=== PATIENT | male | born 1985 | race Caucasian/White ===

== ENCOUNTER 2017-08-09 21:50 | Emergency (ER) | payer OTHER ==
[~2017-08-09] VITALS: Ht 172.7 cm; Wt 95.5 kg
[~2017-08-09 21:50] MED LIST: NOCURR
[2017-08-09 21:52] VITALS: BP 148/88
== END 2017-08-09 22:25 | disposition left against medical advice (07) ==
LOC: EMS 21:51
DX: F41.9 Anxiety disorder, unspecified (principal); F17.210 Nicotine dependence, cigarettes, uncomplicated; Z53.21 Procedure and treatment not carried out due to patient leaving prior to being seen by health care provider

== ENCOUNTER 2017-11-07 04:48 | Emergency (ER) | payer OTHER ==
[~2017-11-07] VITALS: Ht 172.7 cm; Wt 100.0 kg
[2017-11-07 04:49] VITALS: BP 146/84
== END 2017-11-07 05:30 | disposition left against medical advice (07) ==
LOC: EMS 04:48
DX: Z53.21 Procedure and treatment not carried out due to patient leaving prior to being seen by health care provider (principal)

== ENCOUNTER 2021-05-06 21:18 | Emergency (ER) | payer OTHER ==
[~2021-05-06] VITALS: Ht 172.7 cm; Wt 100.0 kg
[2021-05-06] MEDS ORDERED: IBUPROFEN 800 MG TABLET PO ONE (23:30)
[2021-05-06] MEDS ORDERED: BACITRACIN 0.9 GM PACKET OINTMENT TP ONE (23:30)
[2021-05-07] MEDS ORDERED: TraMADol HCL 50 MG TABLET PO ONE (00:45)
[2021-05-07 00:55] VITALS: BP 113/65
[2021-05-07] MEDS ORDERED: FAMOTIDINE 10 MG/ML 2 ML VIAL IVP ONE (01:00)
[2021-05-07] MEDS ORDERED: EPINEPHrine 1:1,000 [1 MG/ML] AMP IM ONE (01:00)
[2021-05-07] MEDS ORDERED: MethylPREDNISolone SOD SUCC 125 MG/2 ML VIAL IVP ONE (01:00)
[2021-05-07] MEDS ORDERED: DiphenhydrAMINE HCL 50 MG/ML VIAL IVP ONE (01:00)
== END 2021-05-07 01:24 | disposition home or self-care (01) ==
LOC: EMS 21:20
DX: S60.121A Contusion of right index finger with damage to nail, initial encounter (principal); F17.210 Nicotine dependence, cigarettes, uncomplicated; F41.9 Anxiety disorder, unspecified; W23.0XXA Caught, crushed, jammed, or pinched between moving objects, initial encounter; Y93.89 Activity, other specified; Y92.89 Other specified places as the place of occurrence of the external cause; Y99.8 Other external cause status
CPT/HCPCS: 99284; 73140-TC; Z7502; Z7610